=== PATIENT | female | born 1990 | race Caucasian/White ===

== ENCOUNTER 2017-12-09 09:01 | Observation (INO) ==
[2017-12-09] MEDS ORDERED: Ondansetron ODT 4 MG TAB.RAPDIS SL ONE (10:37)
[2017-12-09] MEDS ORDERED: 0.9 % Sodium Chloride 1,000 ML IVC ONE (10:37)
[2017-12-09] MEDS ORDERED: cefTRIAXone 1,000 MG in Water for inj. (sterile) 20 ML 10 ML IVP ONE (10:37)
[2017-12-09] MEDS ORDERED: Ketorolac 15 MG/ML VIAL IVP ONE (10:41)
[2017-12-09 10:42] LABS: Color,Urine Amber (Yellow)
--- NOTE | 2017-12-09 10:42 | Emergency Department Note ---
Disposition Clinical Impression: Dysuria, Jaundice, Transaminitis Abdominal pain Qualifiers: Abdominal location: right upper quadrant Qualified Code(s): R10.11 - Right upper quadrant pain Disposition: Admitted As Inpatient Condition: Fair Referrals: NONE,PCP [Primary Care Provider] - Forms: ED Satisfaction Letter Abdominal Pain HPI - General Chief Complaint: ED Urogenital-Female Stated Complaint: UTI Time Seen by Provider: 12/09/17 10:33 Source: patient Mode of arrival: private vehicle Limitations: no limitations Nursing Notes Reviewed: Yes Vital Signs Reviewed: Yes - History of Present Illness Pt Subjective Complaint: abdominal pain Onset (ago): day(s) Consistency: constant Location: diffuse, L flank, R flank Pain Severity: moderate Pain Scale: 6 Quality: aching, fullness Radiation: none Migration to: no migration Improves with: nothing Worsens with: nothing Context: history of similar episodes ("I think I have another URI") Associated symptoms: Reports: nausea, vomiting, chills, dysuria, anorexia. Denies: diarrhea, fever, constipation, hematemesis, hematochezia, melena, hematuria, syncope Treatments prior to arrival: other (went to urgent care 4 days ago - Dx UTI, Rx ABX, one day left - not getting better) - Related Data Home Medications Medication Instructions Recorded Confirmed No Known Home Drugs 12/09/17 12/09/17 Allergies Allergy/AdvReac Type Severity Reaction Status Date / Time No Known Allergies Allergy Verified 12/09/17 15:38 All systems ED: reviewed and negative except as stated. Review of Systems: As Per HPI Constitutional: Reports: chills. Denies: fever, weakness, weight change, night sweats Eyes: Denies: eye discharge, vision change ENT ED: Denies: throat pain, congestion, dysphagia Cardiovascular: Denies: chest pain, palpitations, dyspnea on exertion Respiratory: Denies: cough, dyspnea, wheezes Gastrointestinal: Reports: as per HPI, abdominal pain, nausea, vomiting. Denies : diarrhea, constipation, hematemesis Genitourinary: Reports: as per HPI, dysuria. Denies: urgency, frequency, hematuria, discharge, abnormal menses, genital lesions Musculoskeletal: Reports: as per HPI, back pain. Denies: neck pain, joint swelling, arthralgia, myalgia Integumentary: Denies: rash, lesions, pruritus Neurological: Denies: headache, weakness, confusion, vertigo Hematological/Lymphatic: Denies: easy bleeding, easy bruising, lymphadenopathy Abdominal Pain PMH - Past Medical History Medical history: Reports: other Female Surgical History: Reports: Tonsillectomy, other PHYSICAL METALLURGIST history: Reports: no PHYSICAL METALLURGIST history, bilateral tubal ligation Psychiatric history: Reports: no psych history - Social History Smoking status: Current every day smoker Alcohol use: Reports: none Drug use: Reports: none Physical Exam - General Limitations: no limitations General appearance: alert, in no apparent distress, cachectic - Head Head exam: atraumatic, normocephalic, normal inspection - Eye Eye exam: Present: normal appearance, PERRL, scleral icterus. Absent: conjunctival injection, periorbital swelling - ENT ENT exam: mucous membranes dry - Neck Neck exam: Present: normal inspection, full ROM, trachea midline. Absent: meningismus, lymphadenopathy - Chest Chest inspection: Present: normal inspection - Respiratory Respiratory exam: Present: normal lung sounds bilaterally. Absent: respiratory distress - Cardiovascular Cardiovascular exam: Present: regular rate, normal rhythm. Absent: systolic murmur, diastolic murmur - Abdominal Exam Abdominal exam: Present: soft, tenderness. Absent: distention, guarding, rebound, rigidity, organomegaly, Jimenez's sign, tenderness at McBurney's Point, ascites, mass, pulsatile mass Abdominal tenderness: Present: diffuse, mild - Extremities Exam Extremities exam: Present: other (psoriasis) - Back Exam Back exam: Present: normal inspection, CVA tenderness (R), CVA tenderness (L) - Neurological Exam Neurological exam: Present: alert, oriented X3, CN II-XII intact, normal gait - Psychiatric Psychiatric exam: Present: normal affect, normal mood - Skin Skin exam: Present: warm, dry, intact, normal color Course Course Narrative: Patient presents for evaluation of "UTI." She states that she gets them quite frequently and did see a urologist about five years ago but cannot recall if she was given any diagnoses. She states that for the past week. She has had dysuria and generalized malaise. She was seen at an urgent care, was diagnosed with UTI and was started on antibiotics. She has one day of antibiotics left and is not improving at all. She has had nausea and vomiting for the past two days along with chills. She describes bilateral flank pain and diffuse abdominal pain. On exam she is afebrile, appears ill, has scleral icterus. Dry mucous membranes. Mild diffuse abdominal pain, bilateral CVA tenderness to percussion. No peripheral edema, but she does have moderate psoriasis on the extremities. Labs and meds ordered. Care of this patient transferred to Dr. Duncan after discussion of the case. Vital Signs Temperature 98.1 F 12/09/17 09:22 Pulse Rate 74 12/09/17 09:22 Respiratory Rate 15 12/09/17 09:22 Blood Pressure 100/72 12/09/17 09:22 O2 Sat by Pulse Oximetry 100 12/09/17 09:22 Temperature 979 F H 12/09/17 11:12 Pulse Rate 58 12/09/17 15:22 Respiratory Rate 12 12/09/17 15:22 Blood Pressure 109/66 12/09/17 15:22 O2 Sat by Pulse Oximetry 100 12/09/17 15:22 Oxygen Delivery Oxygen Delivery Room Air Abdominal Pain - MDM Narrative Medical decision making narrative: This documentation is done with the assistance of Dragon dictation. Despite efforts made to ensure accuracy, there may be inaccuracies in dough molder hand or spelling and typographical errors. I examined this patient and my medical decision-making was reviewed with the Resident Physician. I agree with the documented findings, disposition and treatment plan as described except to the extent set forth below. Patient was seen prior to my arrival by the physician's assistant floor covering printer Adeola Tompkins, she signed the patient out to me at 11 AM. Patient has a history of UTI. On Pyridium and Cipro, she had last dose today. Does not feel any better. She is getting bilateral flank pain and some nausea. She has had multiple UTIs in the past. She has also had a history of IV drug abuse and also psoriasis. She is not any immunosuppressants at this time. She says she has not used any drugs of abuse in "quite a while". She does have a little bit of jaundice in her face, little bit of scleral icterus. She said it was worse a couple days ago. She not any history of hepatitis that she is aware of. We will go ahead and check lab work on her, CT her abdomen, give her fluids, start on antibiotics and she may need admission. She is in agreement with this plan. 1256 hrs.: Patient's labs are coming back her bilirubin is elevated and her LFTs are elevated also. Were going to wait for her CT and the determine whether she needs a ultrasound or not. 1440 hrs.: Patient's bedside all sound showed a contracted gallbladder. CT shows she has had a lot of constipation. Were going to order a formal ultrasound and then talked her about admission. Also had a hepatitis profile. Abdomen/Pelvis CT 12/09/17 11:24 IMPRESSION: Large amount of stool. No acute inflammatory process. No bowel obstruction. Nonobstructing left renal calculi. D/ / 12/09/2017 14:08:20 Thai Phillips MD / soha Interpreting Provider: Thai Phillips MD Abdomen/Pelvis CT 12/09/17 11:24 IMPRESSION: Large amount of stool. No acute inflammatory process. No bowel obstruction. Nonobstructing left renal calculi. D/ / 12/09/2017 14:08:20 Thai Phillips MD / soha Interpreting Provider: Thai Phillips MD Gallbladder Ultrasound 12/09/17 14:11 IMPRESSION: 1. Suboptimal evaluation of the gallbladder due to underdistention. Gallbladder wall thickening is noted, likely due to underdistention. If there is clinical concern for acute cholecystitis, further evaluation with nuclear medicine HIDA scan may be performed. D/ / Betty Herrmann MD / Betty Herrmann MD Interpreting Provider: Betty Herrmann MD 1528 hrs.: Spoke with Dr. Tubbs who is on for GI. He agrees to consult on the patient and MRCP. I will speak with hospitalist. And get her admitted. Patient's in agreement with this plan. 1539 hrs.: Spoke with possible steroid except to the patient. I ordered the MRCP, viral hepatitis panel is pending. Patient's updated. And waiting on bed placement. - Lab Data Result diagrams: 12/09/17 11:17 18 11:17 Lab Results 18 18 18 Range/Units 09:32 09:32 11:17 WBC 6.4 (4.3-11.1) K/mcL RBC 4.81 (3.82-4.97) M/mcL Hgb 13.8 (11.5-15.4) g/dL Hct 41.6 (35.3-44.9) % MCV 86.5 (83.0-100.0) fL MCH 28.7 (28.0-33.3) pg MCHC 33.2 (31.6-35.5) g/dL RDW 15.1 H (11.5-14.5) % Plt Count 253 (140-400) K/mcL MPV 10.6 (9.4-12.4) fL Seg Neutrophils % 54.0 % Lymphocytes % 36.0 % Monocytes % 10.0 % Neutrophils # 3.5 (1.6-8.9) K/mcL Lymphocytes # 2.3 (0.6-4.6) K/mcL Monocytes # 0.6 (0.0-1.3) K/mcL Platelet Estimate Normal (Normal) Sodium (136-145) mEq/L Potassium (3.5-5.1) mEq/L Chloride (98-107) mEq/L Carbon Dioxide (23-29) mEq/L BUN (6-20) mg/dL Creatinine (0.60-1.20) mg/dL Est GFR ( Amer) (> 60) Est GFR (Non-Af Amer) (> 60) BUN/Creatinine Ratio (6-26) Glucose (70-105) mg/dL Calculated Osmolality (280-300) Lactic Acid (0.5-2.2) mmol/L Calcium (8.6-10.3) mg/dL Total Bilirubin (0.3-1.0) mg/dL Direct Bilirubin (0.0-0.2) mg/dL Indirect Bilirubin (0.0-1.2) mg/dL AST (13-39) Units/L ALT (7-52) Units/L Alkaline Phosphatase (34-104) Units/L Serum Total Protein (6.4-8.9) g/dL Albumin (3.5-5.7) g/dL Globulin (2.4-3.5) g/dL Albumin/Globulin Ratio (1.1-2.2) Ur Specimen Adequacy See below A Urine Color Aylin A (Yellow) Urine Clarity Slightly Cloudy A (Clear) Urine pH TNP Ur Specific [place] TNP Urine Protein TNP Urine Glucose (UA) TNP Urine Ketones TNP Urine Blood TNP Urine Nitrite TNP Urine Bilirubin TNP Urine Urobilinogen TNP Ur Leukocyte Esterase TNP Urine Microscopic RBC 0-3 (0-3) per hpf Urine Microscopic WBC 0-3 (0-3) per hpf Ur Squamous Epith Cells Moderate H (None-Few) per lpf Calcium Oxalate Crystal Present Urine Bacteria Few (None-Few) per hpf Urine Test Negative (Negative) 12/09/17 12/09/17 Range/Units 11:17 11:17 WBC (4.3-11.1) K/mcL RBC (3.82-4.97) M/mcL Hgb (11.5-15.4) g/dL Hct (35.3-44.9) % MCV (83.0-100.0) fL MCH (28.0-33.3) pg MCHC (31.6-35.5) g/dL RDW (11.5-14.5) % Plt Count (140-400) K/mcL MPV (9.4-12.4) fL Seg Neutrophils % % Lymphocytes % % Monocytes % % Neutrophils # (1.6-8.9) K/mcL Lymphocytes # (0.6-4.6) K/mcL Monocytes # (0.0-1.3) K/mcL Platelet Estimate (Normal) Sodium 135 L (136-145) mEq/L Potassium 3.7 (3.5-5.1) mEq/L Chloride 106 (98-107) mEq/L Carbon Dioxide 25 (23-29) mEq/L BUN 6 (6-20) mg/dL Creatinine 0.52 L (0.60-1.20) mg/dL Est GFR ( Amer) > 60 (> 60) Est GFR (Non-Af Amer) > 60 (> 60) BUN/Creatinine Ratio 12 (6-26) Glucose 89 (70-105) mg/dL Calculated Osmolality 277 L (280-300) Lactic Acid 0.9 (0.5-2.2) mmol/L Calcium 8.7 (8.6-10.3) mg/dL Total Bilirubin 3.3 H (0.3-1.0) mg/dL Direct Bilirubin 2.6 H (0.0-0.2) mg/dL Indirect Bilirubin 0.7 (0.0-1.2) mg/dL AST 381 H (13-39) Units/L ALT > 500 H (7-52) Units/L Alkaline Phosphatase 320 H (34-104) Units/L Serum Total Protein 6.4 (6.4-8.9) g/dL Albumin 3.5 (3.5-5.7) g/dL Globulin 2.9 (2.4-3.5) g/dL Albumin/Globulin Ratio 1.2 (1.1-2.2) Ur Specimen Adequacy Urine Color (Yellow) Urine Clarity (Clear) Urine pH Ur Specific [place] Urine Protein Urine Glucose (UA) Urine Ketones Urine Blood Urine Nitrite Urine Bilirubin Urine Urobilinogen Ur Leukocyte Esterase Urine Microscopic RBC (0-3) per hpf Urine Microscopic WBC (0-3) per hpf Ur Squamous Epith Cells (None-Few) per lpf Calcium Oxalate Crystal Urine Bacteria (None-Few) per hpf Urine Test (Negative) Critical Care Time Critical Care Time: Yes Total Critical Care Time: 30 Attestation: Excluding any separately billable procedures
[2017-12-09 10:43] LABS: Clarity,Urine Slightly Cloudy (Clear)
[2017-12-09 10:54] LABS: Squamous Epithelial Cell,Urine Moderate per lpf (None-Few)
[2017-12-09 10:56] LABS: Calcium Oxalate Crystals,Urine Present; RBC,Urine 0-3 per hpf (0-3); WBC,Urine 0-3 per hpf (0-3)
[2017-12-09 10:57] LABS: Bacteria,Urine Few per hpf (None-Few)
[2017-12-09 12:11] LABS: Hematocrit 41.6 % (35.3-44.9); Hemoglobin 13.8 g/dL (11.5-15.4); Mean Corpuscular HGB Conc 33.2 g/dL (31.6-35.5); Mean Corpuscular Hemoglobin 28.7 pg (28.0-33.3); Mean Corpuscular Volume 86.5 fL (83.0-100.0); Mean Platelet Volume 10.6 fL (9.4-12.4); Platelet Count 253 K/mcL (140-400); Red Blood Count 4.81 M/mcL (3.82-4.97); Red Cell Distribution Width 15.1 % (11.5-14.5)
[2017-12-09 12:17] LABS: Lymphocytes # 2.3 K/mcL (0.6-4.6); Monocytes # 0.6 K/mcL (0.0-1.3); Neutrophils # 3.5 K/mcL (1.6-8.9)
[2017-12-09 12:18] LABS: Alanine Aminotransferase > 500 Units/L (7-52); Albumin 3.5 g/dL (3.5-5.7); Albumin/Globulin Ratio 1.2 (1.1-2.2); Alkaline Phosphatase 320 Units/L (34-104); Aspartate Amino Transferase 381 Units/L (13-39); BUN/Creatinine Ratio 12 (6-26); Bilirubin,Direct 2.6 mg/dL (0.0-0.2); Bilirubin,Indirect 0.7 mg/dL (0.0-1.2); Bilirubin,Total 3.3 mg/dL (0.3-1.0); Blood Urea Nitrogen 6 mg/dL (6-20); Calcium 8.7 mg/dL (8.6-10.3); Carbon Dioxide 25 mEq/L (23-29); Chloride 106 mEq/L (98-107); Globulin 2.9 g/dL (2.4-3.5); Glucose 89 mg/dL (70-105); Osmolality,Calculated 277 (280-300); Platelet Estimate Normal (Normal); Potassium 3.7 mEq/L (3.5-5.1); Sodium 135 mEq/L (136-145); Total Protein 6.4 g/dL (6.4-8.9); eGFR For Non-African Americans > 60 (> 60)
[2017-12-09] MEDS ORDERED: Ondansetron 4 MG/2 ML VIAL IVP ONE (14:23)
[2017-12-09] MEDS ORDERED: *HR* FentaNYL (PF) 100 MCG/2 ML VIAL IVP ONE (14:23)
[2017-12-09] MEDS ORDERED: Bisacodyl 10 MG RECTAL SUPPOSITORY RC PRN (15:43)
[2017-12-09] MEDS ORDERED: Naloxone 0.4 MG/ML INJ IVP PRN (15:44)
[2017-12-09 15:51] LABS: Lipase 40 Units/L (11-82)
[2017-12-09 15:59] LABS: Acetaminophen < 10 mcg/mL (10-20)
--- NOTE | 2017-12-09 16:11 | Internal Med History&Physical ---
Date of Encounter: 12/09/17 Time of Encounter: 15:45 Internal Medicine - H&P: HPI Chief complaint: R rib cage pain Admitted From: Home History of present illness: Ms. Figueroa is a 27 year old female with history of IV drug use presented to the ED with a complaint of R rib cage pain. Located both anteriorly and posteriorly underneath the right rib cage, sharp, 8/10, non-radiating, no aggravating/ relieving factors. Associated with the tea-colored urine but she also admits to taking pyridium for the last week. She was also taking PO Cipro that she was given from urgent care for the last week as well which did not relieve the symptoms. States that the last use of IV drug was about a month ago. She also endorses intermittent nausea/vomiting and constipation. Denies any fever/chills , aspirin, cough, sputum production, dysuria, urinary frequency, joint pain, or new rash. Denies any ingestion of acetaminophen or exposure to the restaurants with known hep A outbreak. In the ED, she was afebrile and hemodynamically stable. Labwork showed normal white blood cell count but she was noted to have deranged liver panel with AST/ALT 381/>500 and Tbili 3.3 with direct 2.6. ALP was also elevated at 320. Otherwise, creatinine was normal and lipase was also unremarkable. -ve urine test. Ultrasound gallbladder was limited by underdistention and CT scan did not show any obvious gallbladder pathology but large amount of stool and nonobstructing left renal calculi. Patient was given IV fluids, IV Rocephin, and admitted for further management. Past Med Surg Social Fam HX - Past Medical History Attestation: Yes The following information was validated with the patient. Medical history: other Additional medical history: IV drug use, Psoriasis, RA, soratic arthritis Psychiatric history: no psych history - Past Surgical History Additional surgical history: Tubal 2014. Cervical biopsy - Social History Smoking Status: Current every day smoker Packs per day: 1 Smokeless Tobacco Status: No Alcohol use: none Drug use: none, marijuana, IV Drug Use - Family History Mother Hx Family GI Disorders: No Father Hx Family GI Disorders: No Internal Medicine - H&P: Meds No Known Home Drugs 12/09/17 [History] 3 Allergy/AdvReac Type Severity Reaction Status Date / Time No Known Allergies Allergy Verified 12/09/17 15:38 All Systems PM: A 10-system review of systems was performed and is negative for pertinent findings except as documented above in the HPI. - Constitutional Vitals: Temp Pulse Resp BP Pulse Ox 979 F H 79 12 109/66 100 12/09/17 11:12 12/09/17 15:42 12/09/17 15:22 12/09/17 15:22 12/09/17 15:22 Exam: General: Alert and oriented, not in acute distress. HEENT:EOM, pupils equal, round and reactive. Mildly icteric sclera Cardiovascular:Normal S1 & S2, No JVD. Pulse regular. Lungs: clear to auscultation, no wheezes/rales Abdomen:Soft, mild RUQ tenderness without rigidity/guarding/rebound tenderness. Jimenez's negative. Extremities:No deformity or swelling Neurological:Normal cognition and motor skills. Non-focal Skin:No rash, no lesions. Pulses:Carotid and radial pulses normal +2. Rest of the physical exam is non contributory Internal Med - H&P Results - Labs CBC & Chem 7: 12/09/17 11:17 12/09/17 11:17 Labs: Short CBC 12/09/17 Range/Units 11:17 WBC 6.4 (4.3-11.1) K/mcL Hgb 13.8 (11.5-15.4) g/dL Hct 41.6 (35.3-44.9) % Plt Count 253 (140-400) K/mcL Neutrophils # 3.5 (1.6-8.9) K/mcL BMP 12/09/17 11:17 Sodium 135 L Potassium 3.7 Chloride 106 Carbon Dioxide 25 BUN 6 Creatinine 0.52 L Glucose 89 Calcium 8.7 Liver Function 12/09/17 Range/Units 11:17 Total Bilirubin 3.3 H (0.3-1.0) mg/dL Direct Bilirubin 2.6 H (0.0-0.2) mg/dL AST 381 H (13-39) Units/L ALT > 500 H (7-52) Units/L Alkaline Phosphatase 320 H (34-104) Units/L Albumin 3.5 (3.5-5.7) g/dL Urine 12/09/17 Range/Units 09:32 Urine Color Aylin A (Yellow) Urine Clarity Slightly Cloudy A (Clear) Urine pH TNP Ur Specific [place] TNP Urine Protein TNP Urine Glucose (UA) TNP - Impressions ITS Impressions Abdomen/Pelvis CT 12/09/17 11:24 IMPRESSION: Large amount of stool. No acute inflammatory process. No bowel obstruction. Nonobstructing left renal calculi. D/ / 12/09/2017 14:08:20 Thai Phillips MD / soha Interpreting Provider: Thai Phillips MD Gallbladder Ultrasound 12/09/17 14:11 IMPRESSION: 1. Suboptimal evaluation of the gallbladder due to underdistention. Gallbladder wall thickening is noted, likely due to underdistention. If there is clinical concern for acute cholecystitis, further evaluation with nuclear medicine HIDA scan may be performed. D/ / Betty Herrmann MD / Betty Herrmann MD Interpreting Provider: Betty Herrmann MD - Assessment and plan (1) Transaminitis Current Visit: Yes Status: Acute Assessment and plan: Admitted for right upper quadrant pain with transaminitis in the setting of IV drug use Pattern of transaminitis is mixed between hepatocellular and cholestasis hepatitis panel pending CT and US did not show any obvious biliary obstruction -> MRCP pending check tylenol level and urine drug screen NPO for now, if MRCP is negative for biliary obstruction, can have clears tonight If MRCP is positive for biliary obstruction, may require GI evaluation for possible ERCP IVF, zofran PRN (2) Constipation Current Visit: Yes Status: Acute Assessment and plan: Large amount of stool noted on the CT Dulcolax Qualifiers: Constipation type: unspecified constipation type Qualified Code(s): K59.00 - Constipation, unspecified (3) IV drug user Current Visit: Yes Status: Acute Assessment and plan: workup for transaminitis as above counselled on the importance of cessation (4) Tobacco abuse Current Visit: Yes Status: Acute Assessment and plan: counseling given declined NRT (5) DVT prophylaxis Current Visit: Yes Status: Acute Assessment and plan: SCD - Time Spent With Patient Total time spent is greater than 50% in coordination of care (as documented) at patient's floor/unit and/or counseling patient:
[2017-12-09] MEDS: Ringers Solution, Lactated 1,000 ML IVC SCH (22:19)
[2017-12-09] MEDS: Ketorolac 15 MG/ML VIAL IVP PRN (22:20)
[2017-12-10 04:46] LABS: Hematocrit 40.9 % (35.3-44.9); Hemoglobin 13.1 g/dL (11.5-15.4); Mean Corpuscular Hemoglobin 28.3 pg (28.0-33.3); Mean Corpuscular Volume 88.3 fL (83.0-100.0); Mean Platelet Volume 10.5 fL (9.4-12.4); Platelet Count 270 K/mcL (140-400); Red Blood Count 4.63 M/mcL (3.82-4.97); Red Cell Distribution Width 15.3 % (11.5-14.5)
[2017-12-10 04:49] LABS: Prothrombin Time 11.6 Seconds (9.4-12.1)
[2017-12-10 05:06] LABS: Alanine Aminotransferase > 500 Units/L (7-52); Albumin 2.9 g/dL (3.5-5.7); Albumin/Globulin Ratio 1.2 (1.1-2.2); Alkaline Phosphatase 274 Units/L (34-104); Aspartate Amino Transferase 252 Units/L (13-39); BUN/Creatinine Ratio 9 (6-26); Bilirubin,Total 2.8 mg/dL (0.3-1.0); Blood Urea Nitrogen 5 mg/dL (6-20); Carbon Dioxide 24 mEq/L (23-29); Chloride 109 mEq/L (98-107); Globulin 2.5 g/dL (2.4-3.5); Glucose 122 mg/dL (70-105); Osmolality,Calculated 281 (280-300); Sodium 136 mEq/L (136-145); Total Protein 5.4 g/dL (6.4-8.9); eGFR For Non-African Americans > 60 (> 60)
[2017-12-10] MEDS: Ringers Solution, Lactated 1,000 ML IVC SCH (05:23)
[2017-12-10] MEDS ORDERED: MOM Conc 10 ML UD.LIQ PO ONE (09:28)
--- NOTE | 2017-12-10 09:33 | Gastroenterology Consult Note ---
<Tosin Meyer - Last Filed: 12/10/17 09:28> Date of Encounter: 12/10/17 Time of Encounter: 09:00 - Assessment and plan (1) Transaminitis Current Visit: Yes Status: Acute Assessment and plan: 27 year old female with history of iV drug use. She presents with acute abdominal symptoms and elevated LFTs. MRCP was normal. She likely has acute hepatitis. Hepatitis panel is pending. Continue supportive care. (2) Jaundice Current Visit: Yes Status: Acute (3) Constipation Current Visit: Yes Status: Acute Assessment and plan: Pt reports constipation for the past week. Will order miralax daily until BM. Qualifiers: Constipation type: unspecified constipation type Qualified Code(s): K59.00 - Constipation, unspecified - Time Spent With Patient Total time spent is greater than 50% in coordination of care (as documented) at patient's floor/unit and/or counseling patient: GI History of Present Illness - Data of Consult Patient: new to practice Consult date: 12/10/17 Requesting Physician: Freddie Dozier MD - Consult Narrative Reason for consult: elevated LFTs History of present illness: Ms. Figueroa is a 27 year old female with history of IV drug use presented to the ED with a complaint of R rib cage pain. Located both anteriorly and posteriorly underneath the right rib cage, sharp, 8/10, non-radiating, no aggravating/ relieving factors. She reports pain, nausea and vomiting have been ongoing for the past 2 weeks. She states an acquaintance noticed yellowing of her skin and eyes approximately 3 days ago. She states she has had decreased urine output and tea-colored urine but she also admits to taking pyridium for the last week. She was also taking PO Cipro that she was given from urgent care for the last week as well which did not relieve the symptoms. States that the last use of IV drug was about a month ago. She admits to low grade fever and chills, denies any, cough, sputum production, dysuria, urinary frequency, joint pain, or new rash. Denies any ingestion of acetaminophen or exposure to the restaurants with known hep A outbreak. Inital labs showed an AST/ALT 381/>500 and Tbili 3.3 with direct 2.6. ALP was also elevated at 320. Ultrasound gallbladder was limited by underdistention and CT scan did not show any obvious gallbladder pathology but large amount of stool and nonobstructing left renal calculi. MRCP was normal, no obstruction. Patient was given IV fluids, IV Rocephin, and admitted for further management. LFTs are slightly improved this morning, hepatitis panel remains pending. Past Med Surg Social Fam HX - Past Medical History Medical history: other Additional medical history: IV drug use, Psoriasis, RA, soratic arthritis Psychiatric history: no psych history - Past Surgical History Additional surgical history: Tubal 2014. Cervical biopsy - Social History Smoking Status: Current every day smoker Packs per day: 1 Smokeless Tobacco Status: No Alcohol use: none Drug use: none, marijuana, IV Drug Use - Family History Mother Hx Family GI Disorders: No Father Hx Family GI Disorders: No Review of Systems: GENERAL: see HPI EYES: see HPI ENT: denies pain with swallowing or difficulty swallowing CARDIO: denies chest pain, palpitations RESP: No Shortness of breath with exertion : see HPI NEURO: denies any weakness HEME: Denies any bruising MS: denies joint pain, joint swelling or back pain. DERM: denies rash or itching PSYCH: history of anxiety and depression - Constitutional Vitals: Temp Pulse Resp BP Pulse Ox 98.3 F 64 15 104/70 98 12/10/17 07:09 12/10/17 07:09 12/10/17 07:09 12/10/17 07:09 12/10/17 07:09 Exam: CONSTITUTIONAL:~alert, no acute distress.~HEAD:~normocephalic.~EYES:~mild icterus noted.~NECK:~no obvious swelling.~HEART:~regular rate and rhythm, no murmurs.~LUNGS:~bilateral good air entry.~ABDOMEN:~softly distended, soft, diffusely tender, no masses palpable, no organomegaly.~RECTAL EXAM:~Deferred.~ EXTREMITIES:~no clubbing, cyanosis or edema.~SKIN:~no stigmata of chronic liver disease, psoriasis noted.~NEUROLOGIC:~no obvious focal defect.~~~~ Results - Labs CBC & Chem 7: 12/10/17 04:27 12/10/17 04:27 Labs: Last Result Calcium 8.0 mg/dL (8.6-10.3) L 12/10/17 04:27 Entire Visit Hgb 13.1 g/dL (11.5-15.4) 12/10/17 04:27 Hct 40.9 % (35.3-44.9) 12/10/17 04:27 PT 11.6 Seconds (9.4-12.1) 12/10/17 04:27 Total Bilirubin 2.8 mg/dL (0.3-1.0) H 12/10/17 04:27 AST 252 Units/L (13-39) H 12/10/17 04:27 ALT > 500 Units/L (7-52) H 12/10/17 04:27 Lipase 40 Units/L (11-82) 12/09/17 11:17 Acetaminophen < 10 mcg/mL (10-20) L 12/09/17 11:17 - ABG ABG results: PT/INR, D-dimer PT 11.6 Seconds (9.4-12.1) 12/10/17 04:27 Consult Discharge Plan - Plan Referrals: NONE,PCP [Primary Care Provider] - <Екатерина Simmons - Last Filed: 12/10/17 14:35> Date of Encounter: 12/10/17 Time of Encounter: 14:00 - Time Spent With Patient Total time spent is greater than 50% in coordination of care (as documented) at patient's floor/unit and/or counseling patient: GI History of Present Illness - Data of Consult Requesting Physician: Freddie Dozier MD - Consult Narrative History of present illness: Ms. Figueroa is a 27 year old female - Constitutional Vitals: Temp Pulse Resp BP Pulse Ox 98.5 F 73 15 104/69 98 12/10/17 10:23 12/10/17 10:23 12/10/17 10:23 12/10/17 10:23 12/10/17 10:23 Results - Labs CBC & Chem 7: 12/10/17 04:27 12/10/17 04:27 Labs: Last Result Calcium 8.0 mg/dL (8.6-10.3) L 12/10/17 04:27 Salicylates < 2.5 mg/dL (15.0-30.0) L 12/10/17 09:47 Urine Opiates Screen Negative ng/mL (Ujblht=950) 12/10/17 10:48 Entire Visit Hgb 13.1 g/dL (11.5-15.4) 12/10/17 04:27 Hct 40.9 % (35.3-44.9) 12/10/17 04:27 PT 11.6 Seconds (9.4-12.1) 12/10/17 04:27 Total Bilirubin 2.8 mg/dL (0.3-1.0) H 12/10/17 04:27 AST 252 Units/L (13-39) H 12/10/17 04:27 ALT > 500 Units/L (7-52) H 12/10/17 04:27 Ammonia 66 mcmol/L (16-53) H 12/10/17 09:47 Lipase 40 Units/L (11-82) 12/09/17 11:17 Acetaminophen < 10 mcg/mL (10-20) L 12/10/17 09:47 - ABG ABG results: PT/INR, D-dimer PT 11.6 Seconds (9.4-12.1) 12/10/17 04:27 - Attending Attestation I have personally performed a face to face evaluation on this patient. I have reviewed and agree with the care plan. History and Exam by me shows: Patient seen patient complaining of epigastric upper abdominal and back pain. On examination does has epigastric tenderness. Assessment patient with hepatitis most probably viral MRCP is negative for any CBD obstruction. Recommendation: Follow hepatitis profile supportive care
[2017-12-10 10:25] LABS: Acetaminophen < 10 mcg/mL (10-20); Salicylate < 2.5 mg/dL (15.0-30.0)
[2017-12-10] MEDS: Ondansetron 4 MG/2 ML VIAL IVP PRN (10:27)
[2017-12-10] MEDS: Ketorolac 15 MG/ML VIAL IVP PRN ×2 (10:32→17:02)
[2017-12-10 11:02] LABS: Bilirubin,Urine Small (Negative); Blood,Urine Negative (Negative); Color,Urine Orange (Yellow); Glucose,Urine (UA) Normal (Normal); Ketones,Urine Negative (Negative); Leukocyte Esterase,Urine Trace (Negative); Nitrite,Urine Positive (Negative); PH,Urine 6.5 pH Units (5.0-8.0); Protein,Urine Negative (Neg-Trace); Specific Gravity,Urine 1.013 (1.010-1.025); Urobilinogen,Urine Normal (Normal)
[2017-12-10 11:03] LABS: Bacteria,Urine None Seen per hpf (None-Few); Hyaline Casts,Urine None Seen per lpf (None-Few); RBC,Urine 0-3 per hpf (0-3); Squamous Epithelial Cell,Urine Many per lpf (None-Few); WBC,Urine 0-3 per hpf (0-3)
[2017-12-10 11:06] LABS: Clarity,Urine Slightly Hazy (Clear)
[2017-12-10 11:15] LABS: Yeast,Urine Few per hpf (None Seen)
[2017-12-10 11:16] LABS: Amorphous Sediment,Urine Few (Few)
[2017-12-10 11:26] LABS: Amphetamine Screen,Urine Positive ng/mL (Cutoff=1000); Barbiturate Screen,Urine Negative ng/mL (Cutoff=200); Benzodiazepines Screen,Urine Negative ng/mL (Cutoff=200); Cannabinoid Screen,Urine Positive ng/mL (Cutoff = 50); Cocaine Screen,Urine Negative ng/mL (Cutoff= 300); Opiate Screen,Urine Negative ng/mL (Cutoff=300); Phencyclidine Screen,Urine Negative ng/mL (Cutoff=25)
[2017-12-10 13:49] LABS: Hepatitis B Core IgM Nonreactive (Nonreactive); Hepatitis B Surface Antigen Nonreactive (Nonreactive); Hepatitis C Virus Antibody Nonreactive (Nonreactive)
--- NOTE | 2017-12-10 14:24 | Internal Med Progress Note ---
Hospitalist Progress Note - Encounter Date of Encounter: 12/10/17 Time of Encounter: 14:22 - Subjective Interval History: Pt states she is still having some abdominal pain and nausea. She denies WAGNER, fever, chills, vomiting. She denies diarrhea. She denies CP or SOB. Pt's boyfriend at bedside. Pt denies prior hx of hepatitis she is aware of. She also denies prior hx of sexually transmitted disease. States she has never been tested for HIV. Pt admits to hx of using meth and states BF still uses meth. BF also at bedside denies prior hx of HIV, hepatitis or any other sexually transmitted disease. Pt reports that she is willing to quit and would like to go into rehab after discharge. She states she is trying to get her kids back. - Exam Vitals: Temp Pulse Resp BP Pulse Ox 98.5 F 73 15 104/69 98 12/10/17 10:23 12/10/17 10:23 12/10/17 10:23 12/10/17 10:23 12/10/17 10:23 Exam: General: Alert and oriented, not in acute distress. Very poor oral dentition. HEENT:EOM, pupils equal, round and reactive. Mildly icteric sclera Cardiovascular:Normal S1 & S2, No JVD. Pulse regular. Lungs: clear to auscultation, no wheezes/rales Abdomen:Soft, mild RUQ tenderness without rigidity/guarding/rebound tenderness. Jimenez's negative. Extremities:No deformity or swelling Neurological:Normal cognition and motor skills. Non-focal Skin: No rash, no lesions. Pt does not appear to have significant jaundice at this time. Pulses: Carotid and radial pulses normal +2. Rest of the physical exam is non contributory - Assessment and Plan (1) Transaminitis Current Visit: Yes Status: Acute Assessment and Plan: Seen by GI. Awaiting results of LFT's results. Abdominal US US/US gall bladder IMPRESSION: 1. Suboptimal evaluation of the gallbladder due to underdistention. Gallbladder wall thickening is noted, likely due to underdistention. If there is clinical concern for acute cholecystitis, further evaluation with nuclear medicine HIDA scan may be performed. CT/CT abd pelvis wo no iv no oral IMPRESSION: Large amount of stool. No acute inflammatory process. No bowel obstruction. Nonobstructing left renal calculi. MR/MR abdomen wo con IMPRESSION: Negative abdominal MRI/MRCP. (2) Jaundice Current Visit: Yes Status: Acute Assessment and Plan: improved today. Total bili 3.3 12/09, 2.8 12/10. Pt still has sclera icterus (3) IV drug user Current Visit: Yes Status: Acute Assessment and Plan: UDS positive for meth and THC. Pt confirms that she does use meth and states her last use was about 3 weeks ago. Will consult social work for referral to rehab. Checking HIV, VDRL, Chlamydia and Gonorrhea DNA Ur. (4) Tobacco abuse Current Visit: Yes Status: Acute Assessment and Plan: Cessation strongly advised. (5) Constipation Current Visit: Yes Status: Acute Assessment and Plan: Given one time does of milk of mag. Will also add senna 8.6 mg PO BID delmar for now. DVT Prophylaxis: Pt ambulates and also adding SCD. - Summary of Assessment and Plan Summary of Assessment and Plan: Ms. Figueroa is a 27 year old female with history of IV drug use presented to the ED with a complaint of R rib cage pain. Located both anteriorly and posteriorly underneath the right rib cage, sharp, 8/10, non-radiating, no aggravating/ relieving factors. She was found to have elevated LFT's. - Time Spent with Patient Total time spent is greater than 50% in coordination of care (as documented) at patient's floor/unit and/or counseling patient: 25 - 35 minutes Plan of Care Discussed with: patient Internal Medicine: Result - Labs CBC & Chem 7: 12/10/17 04:27 12/10/17 04:27 Labs: Short CBC 12/10/17 Range/Units 04:27 WBC 5.3 (4.3-11.1) K/mcL Hgb 13.1 (11.5-15.4) g/dL Hct 40.9 (35.3-44.9) % Plt Count 270 (140-400) K/mcL BMP 12/10/17 04:27 Sodium 136 Potassium 4.0 Chloride 109 H Carbon Dioxide 24 BUN 5 L Creatinine 0.54 L Glucose 122 H Calcium 8.0 L Liver Function 12/10/17 Range/Units 04:27 Total Bilirubin 2.8 H (0.3-1.0) mg/dL AST 252 H (13-39) Units/L ALT > 500 H (7-52) Units/L Alkaline Phosphatase 274 H (34-104) Units/L Albumin 2.9 L (3.5-5.7) g/dL Urine 12/10/17 Range/Units 10:48 Urine Color Rudyard A (Yellow) Urine Clarity Slightly Hazy (Clear) Urine pH 6.5 (5.0-8.0) pH Units Ur Specific Fosters 1.013 (1.010-1.025) Urine Protein Negative (Neg-Trace) mg/dL Urine Glucose (UA) Normal (Normal) mg/dL - ABG Interpretation ABG results: PT/INR, D-dimer PT 11.6 Seconds (9.4-12.1) 12/10/17 04:27 Consult Discharge Plan - Plan Referrals: NONE,PCP [Primary Care Provider] - (5) Constipation Qualifiers: Constipation type: unspecified constipation type Qualified Code(s): K59.00 - Constipation, unspecified
[2017-12-10 14:39] LABS: Hepatitis A Antibody IgM Reactive (Nonreactive)
[2017-12-10] MEDS: cefTRIAXone 1,000 MG in Water for inj. (sterile) 20 ML 10 ML IVP SCH (17:01)
[2017-12-10] MEDS: Sennosides 8.6 MG TABLET PO SCH (20:43)
[2017-12-10] MEDS: OXYCODONE Oral CONC 10 MG/0.5 ML ORAL.SYG SL PRN (20:43)
[2017-12-11 06:53] VITALS: BP 116/79
[2017-12-11] MEDS: OXYCODONE Oral CONC 10 MG/0.5 ML ORAL.SYG SL PRN (08:09)
[2017-12-11] MEDS: cefTRIAXone 1,000 MG in Water for inj. (sterile) 20 ML 10 ML IVP SCH (09:05)
[2017-12-11] MEDS: Sennosides 8.6 MG TABLET PO SCH (09:05)
[2017-12-11 09:32] LABS: Alanine Aminotransferase > 500 Units/L (7-52); Albumin/Globulin Ratio 1.2 (1.1-2.2); Alkaline Phosphatase 306 Units/L (34-104); Aspartate Amino Transferase 244 Units/L (13-39); BUN/Creatinine Ratio 9 (6-26); Bilirubin,Total 2.7 mg/dL (0.3-1.0); Blood Urea Nitrogen 5 mg/dL (6-20); Calcium 8.3 mg/dL (8.6-10.3); Carbon Dioxide 27 mEq/L (23-29); Chloride 107 mEq/L (98-107); Globulin 2.6 g/dL (2.4-3.5); Glucose 108 mg/dL (70-105); Osmolality,Calculated 280 (280-300); Potassium 4.2 mEq/L (3.5-5.1); Sodium 136 mEq/L (136-145); Total Protein 5.6 g/dL (6.4-8.9); eGFR For Non-African Americans > 60 (> 60)
--- NOTE | 2017-12-11 12:20 | Gastroenterology Progress Note ---
<Tosin eMyer - Last Filed: 12/11/17 12:14> Date of Encounter: 12/11/17 Time of Encounter: 09:20 - Assessment and plan (1) Transaminitis Current Visit: Yes Status: Acute Assessment and plan: 27 year old female with history of iV drug use. She presents with acute abdominal symptoms and elevated LFTs. MRCP was normal. Labs were positive for Hep A, negative Hep B, C and HIV. She was advised contact precautions to prevent spread. Continue supportive care. She is epressing interest in rehab after discharge and is encouraged. (2) Jaundice Current Visit: Yes Status: Acute (3) Constipation Current Visit: Yes Status: Acute Assessment and plan: miralax started yesterday with relief Qualifiers: Constipation type: unspecified constipation type Qualified Code(s): K59.00 - Constipation, unspecified - Time Spent With Patient Total time spent is greater than 50% in coordination of care (as documented) at patient's floor/unit and/or counseling patient: - Subjective Interval history: Pt is awake in bed. She reports she feels some better today. She tolerated breakfast this morning. - Constitutional Vitals: Temp Pulse Resp BP Pulse Ox 98.3 F 75 18 116/79 97 12/11/17 06:51 12/11/17 06:51 12/11/17 06:51 12/11/17 06:51 12/11/17 06:51 Exam: CONSTITUTIONAL: alert, no acute distress. HEAD: normocephalic. EYES: minimal jaundice. NECK: no obvious swelling. HEART: regular rate and rhythm, no murmurs. LUNGS: bilateral good air entry. ABDOMEN: non distended, soft, non tander, no masses pulpable, no organomegaly. RECTAL EXAM: Deferred. EXTREMITIES : no clubbing, cyanosis or edema. SKIN: no stigmata of chronic liver disease. NEUROLOGIC: no obvious focal defect. Results - Labs CBC & Chem 7: 12/10/17 04:27 12/11/17 08:58 Labs: Last Result Calcium 8.3 mg/dL (8.6-10.3) L 12/11/17 08:58 Salicylates < 2.5 mg/dL (15.0-30.0) L 12/10/17 09:47 Urine Opiates Screen Negative ng/mL (Dzchqc=507) 12/10/17 10:48 Entire Visit Hgb 13.1 g/dL (11.5-15.4) 12/10/17 04:27 Hct 40.9 % (35.3-44.9) 12/10/17 04:27 PT 11.6 Seconds (9.4-12.1) 12/10/17 04:27 Total Bilirubin 2.7 mg/dL (0.3-1.0) H 12/11/17 08:58 AST 244 Units/L (13-39) H 12/11/17 08:58 ALT > 500 Units/L (7-52) H 12/11/17 08:58 Ammonia 66 mcmol/L (16-53) H 12/10/17 09:47 Lipase 40 Units/L (11-82) 12/09/17 11:17 Acetaminophen < 10 mcg/mL (10-20) L 12/10/17 09:47 - ABG ABG results: PT/INR, D-dimer PT 11.6 Seconds (9.4-12.1) 12/10/17 04:27 Consult Discharge Plan - Plan Referrals: Cata Darby [Resident] - 12/25/17 2:00 pm (Please bring your new patient packet along with your photo ID, insurance card and any medications you are on. If you need to cancel please call and give a 24 hour notice. Thank you) Prescriptions: Cefdinir [Omnicef] 300 mg PO DAILY #10 capsule <Екатерина Simmons - Last Filed: 12/11/17 15:08> Date of Encounter: 12/11/17 Time of Encounter: 13:30 - Time Spent With Patient Total time spent is greater than 50% in coordination of care (as documented) at patient's floor/unit and/or counseling patient: - Constitutional Vitals: Temp Pulse Resp BP Pulse Ox 98.3 F 75 18 116/79 97 12/11/17 06:51 12/11/17 06:51 12/11/17 06:51 12/11/17 06:51 12/11/17 06:51 Results - Labs CBC & Chem 7: 12/10/17 04:27 12/11/17 08:58 Labs: Last Result Calcium 8.3 mg/dL (8.6-10.3) L 12/11/17 08:58 Salicylates < 2.5 mg/dL (15.0-30.0) L 12/10/17 09:47 Urine Opiates Screen Negative ng/mL (Tethay=572) 12/10/17 10:48 Entire Visit Hgb 13.1 g/dL (11.5-15.4) 12/10/17 04:27 Hct 40.9 % (35.3-44.9) 12/10/17 04:27 PT 11.6 Seconds (9.4-12.1) 12/10/17 04:27 Total Bilirubin 2.7 mg/dL (0.3-1.0) H 12/11/17 08:58 AST 244 Units/L (13-39) H 12/11/17 08:58 ALT > 500 Units/L (7-52) H 12/11/17 08:58 Ammonia 66 mcmol/L (16-53) H 12/10/17 09:47 Lipase 40 Units/L (11-82) 12/09/17 11:17 Acetaminophen < 10 mcg/mL (10-20) L 12/10/17 09:47 - ABG ABG results: PT/INR, D-dimer PT 11.6 Seconds (9.4-12.1) 12/10/17 04:27 - Attending Attestation I have personally performed a face to face evaluation on this patient. I have reviewed and agree with the care plan. History and Exam by me shows: Pt seen, complaining of nausea. A: patient with acute Hep A. Recommendation: symptomatic treatment including treatment of the nausea
--- NOTE | 2017-12-11 12:35 | Discharge Summary ---
- NOTES TO OUTPATIENT PROVIDER Notes to Outpatient Provider: PCP in 5 to 7 days Orders not resulted at time of discharge: Pending orders 12/10/17 14:28 Chlamydia Trachomatis DNA Ur [MOLMIC] Routine Neisseria Gonorrhoeae DNA, Ur [MOLMIC] Routine OUT Pt Labs 12/25/2017 Comprehensive Metabolic Panel 01/08 2018 Comprehensive Metabolic Panel Date of Encounter: 12/11/17 Time of Encounter: 12:32 - Discharge Diagnosis (1) Acute hepatitis A Priority: Primary Status: Acute (2) Transaminitis Priority: Primary Status: Acute (3) Jaundice Priority: Primary Status: Acute (4) IV drug user Priority: Primary Status: Acute (5) Tobacco abuse Priority: Secondary Status: Acute (6) Constipation Priority: Secondary Status: Acute Qualifiers: Constipation type: unspecified constipation type Qualified Code(s): K59.00 - Constipation, unspecified Hospital course: Ms. Figueroa is a 27 year old female with history of IV drug use presented to the ED with a complaint of R rib cage pain. Located both anteriorly and posteriorly underneath the right rib cage, sharp, 8/10, non-radiating, no aggravating/ relieving factors. Associated with the tea-colored urine but she also admits to taking pyridium for the last week. She was also taking PO Cipro that she was given from urgent care for the last week as well which did not relieve the symptoms. States that the last use of IV drug was about a month ago. She also endorses intermittent nausea/vomiting and constipation. Denies any fever/chills , aspirin, cough, sputum production, dysuria, urinary frequency, joint pain, or new rash. Denies any ingestion of acetaminophen or exposure to the restaurants with known hep A outbreak. In the ED, she was afebrile and hemodynamically stable. Lab work showed normal white blood cell count but she was noted to have deranged liver panel with AST/ALT 381/>500 and Tbili 3.3 with direct 2.6. ALP was also elevated at 320. Otherwise, creatinine was normal and lipase was also unremarkable. -ve urine test. Ultrasound gallbladder was limited by under distention and CT scan did not show any obvious gallbladder pathology but large amount of stool and non-obstructing left renal calculi. Patient was given IV fluids, IV Rocephin, and admitted for further management. Pt states abdominal pain has almost completely resolved. She denies diarrhea. She denies fever, chills, N/V, constipation resolving as well. Scleral icterus much improved. No notable jaundice on exam. US/US gall bladder IMPRESSION: 1. Suboptimal evaluation of the gallbladder due to underdistention. Gallbladder wall thickening is noted, likely due to underdistention. If there is clinical concern for acute cholecystitis, further evaluation with nuclear medicine HIDA scan may be performed. CT/CT abd pelvis wo no iv no oral IMPRESSION: Large amount of stool. No acute inflammatory process. No bowel obstruction. Nonobstructing left renal calculi. Discharge discussed with: patient - Time Spent with Patient Total time spent providing and/or coordinating discharge services: Greater than 30 minutes - Discharge Medications Home Medications: No Known Home Drugs 12/09/17 [History] Allergies/Adverse Reactions: 3 Allergy/AdvReac Type Severity Reaction Status Date / Time No Known Allergies Allergy Verified 12/09/17 15:38 Date of admission: 12/09/17 16:50 Primary care physician: PCP NONE Consults: 12/11/17 12:30 Consult to Credit Investigator [CONS] Routine Reason for SW Consult: pt requesting information on drug rehab Discharging clinician: Jesika Douglas Anticipated date of discharge: 12/11/17 - Constitutional Vitals: Temp Pulse Resp BP Pulse Ox 98.3 F 75 18 116/79 97 12/11/17 06:51 12/11/17 06:51 12/11/17 06:51 12/11/17 06:51 12/11/17 06:51 Exam: General: Alert and oriented, not in acute distress. Very poor oral dentition. HEENT:EOM, pupils equal, round and reactive. Mildly icteric sclera has completely Cardiovascular:Normal S1 & S2, No JVD. Pulse regular. Lungs: clear to auscultation, no wheezes/rales Abdomen:Soft, mild RUQ tenderness without rigidity/guarding/rebound tenderness. Jimenez's negative. Extremities:No deformity or swelling Neurological:Normal cognition and motor skills. Non-focal Skin: No rash, no lesions. Pt does not appear to have significant jaundice at this time. Pulses: Carotid and radial pulses normal +2. Rest of the physical exam is non contributory - Patient Status Disposition: Home, Self-Care Condition: Good Overall status at discharge: patient is progressing back to baseline - Discharge Instructions Follow Up With: NONE,PCP [Primary Care Provider] - - Diet and Activity Activity: increase activity as tolerated Diet: advance to your usual diet
[2017-12-11] MEDS: Ondansetron 4 MG/2 ML VIAL IVP PRN (15:11)
== END 2017-12-11 15:45 | disposition home or self-care (01) ==
LOC: SUATTDRO → EMEROOARM 09:01 → 3ANU 09:01 → SUATTDRO 16:50 → 3ANU 19:38
PROVIDERS: ADMIT Student in an Organized Health Care Education/Training Program; ATTEND Internal Medicine